=== PATIENT | male | born 1980 | race Caucasian/White ===

== ENCOUNTER 2021-09-01 20:57 | Emergency (ER) | payer BC, SELFPAY ==
[2021-09-01 20:58] VITALS: BP 132/86; PULSE 100; RESP 18; TEMP 35.7; O2SAT 98; BMI 30.3
--- NOTE | 2021-09-01 21:13 | EDS_ITS ---
HPI History of Present Illness Chief Complaint: Shortness of Breath Informant: patient Narrative Narrative: Sent in here by primary care team for evaluation. I spoke with nurse practitioner Darcie Romero prior to his arrival. Apparently coughing since . Concerns he is slightly tachycardic had ketones in his urine 1 to rule out pneumonia and Covid. He is not vaccinated. He states cough would come and go and return. He has no tobacco history. In addition he has not seen the office for 2 years history of diabetes his A1c is 11.6 his urine dip no small ketones. EKG was normal for which he brought in with sinus rhythm with a normal rate. He has no urinary symptoms. His pulse ox was normal. He does report intermittent joint pains and myalgias. Reports intermittent fevers. No chest pains. No vomiting or diarrhea. [facility] Medical History Diabetes type 2, uncontrolled Low testosterone in male Home Medications empagliflozin 25 mg tablet 25 mg PO DAILY #30 tab 09/01/21 [Rx Last Taken Unknown] metformin 500 mg tablet 500 mg PO BID #180 tab 09/01/21 [Rx Last Taken Unknown] Allergy/AdvReac Type Severity Reaction Status Date / Time No Known Allergies Allergy Verified 09/01/21 19:29 Social History Smoking Status: Never smoker ROS ROS ED Constitutional Constitutional ED: Reports fever(s); Denies chills or sweats Eyes Eyes: Denies change in vision ENT ENT ED: Denies dysphagia or sore throat Cardiovascular Cardiovascular: Denies chest pain, leg edema, palpitations or racing heartbeat Respiratory/Chest Respiratory/Chest: Reports cough; Denies dyspnea or dyspnea on exertion Gastrointestinal Gastrointestinal: Denies abdominal pain, diarrhea, nausea or vomiting Genitourinary Genitourinary ED: Denies dysuria, hematuria or urinary frequency Musculoskeletal Musculoskeletal: Reports myalgias; Denies back pain, extremity pain or neck pain Integumentary Denies rash or wounds Neurologic Neurologic: Denies headache(s), paresthesias or weakness EXAM Physical Exam Const Vital Signs: 09/01/21 20:58 09/01/21 21:23 09/01/21 21:24 Temperature 96.3 F L Temperature Source Temporal Pulse Rate 100 98 Respiratory Rate 18 20 H Respiratory Effort Short of Breath Labored Respiratory Pattern Tachypnea Blood Pressure 132/86 H Blood Pressure Mean 101 Pulse Ox 98 98 Oxygen Delivery Method Room Air Room Air 09/01/21 22:01 Temperature 98.6 F Temperature Source Temporal Pulse Rate 100 Respiratory Rate 20 H Respiratory Effort Respiratory Pattern Blood Pressure 126/78 H Blood Pressure Mean 94 Pulse Ox 98 Oxygen Delivery Method Room Air Positive well nourished and well developed General Appearance ED: well developed and NAD HEENT Reports moist mucous membranes normocephalic and atraumatic Eyes PERRL, EOMs intact bilaterally and conjunctivae normal General Eye ED: Yes normal appearance of both eyes Neck no lymphadenopathy and supple General: Negative for tenderness Chest Wall Chest: Negative for tenderness Resp normal respiratory effort and normal air movement Effort and Inspection: symmetric chest movement; Negative for respiratory distress Cardio regular rate, regular rhythm and no murmurs Peripheral Pulses: pulses 2+ throughout GI normal to inspection, nondistended, normoactive bowel sounds and non-tender Palpation: Negative for guarding or rebound tenderness present Back/Spine no CVA tenderness and no thoracic nor lumbar tenderness Extremity normal to inspection General Extremety ED: Negative for edema or tenderness General Extremity: Negative for edema Neuro oriented x3 and no sensory deficits noted Sensorium / Orientation: awake and alert Skin no rashes or lesions noted and no wounds MDM MDM MDM Narrative Medical decision making narrative: Patient vital signs stable afebrile. Pulse ox 98% on room air. Work-up initiated chest x-ray 1 view reviewed by myself read by radiology negative for any acute process. Laboratory studies white count 1.1 hemoglobin 11.6 platelets were 274. Sodium 131 potassium 3.8 creatinine 1.12. Glucose 263, anion gap was 6. Acetone negative. He was given 1 L of fluids. Covid testing also did return positive. She has been on and off symptomatic since . He is well outside the window for treatment he is not hypoxic. Discussed with patient findings he will continue to isolate or a mass. With his neutropenia WBCs of 1.1, possibly could be to his COVID have disease had the symptoms for nearly 2 months with these findings. He is given follow-up with hematology as an outpatient for reevaluation. Message was left with patient's primary team for follow-up. Patient is being discharged under pandemic conditions under declared global, marlen ional and state disaster activation, with limited medical resources. Patient and community understands this. Results discussed in layman's terms to the patient satisfaction. All questions answered in layman's terms. Patient understands importance of follow-up care as directed. Patient has been instructed to return to the ED immediately if new symptoms, problems, or questions occur. We mutually agree with the plan of disposition. The patient understand that they may call or return with any questions or concerns at any time. Lab Data Attestation: I reviewed the patient's lab results. Labs: Laboratory Results - last 24 hr 09/01/21 09/01/21 09/01/21 21:23 21:23 21:23 WBC 1.1 L* RBC 3.36 L Hgb 11.6 L Hct 31.4 L MCV 93.5 MCH 34.5 H MCHC 36.9 H RDW Std Deviation 44.8 H RDW Coeff of Elizabeth 13.2 Plt Count 274 MPV 8.8 Immature Gran % (Auto) 0.000 Neut % (Auto) 20.6 L Lymph % (Auto) 70.5 H Stoddard % (Auto) 8.9 Eos % (Auto) 0.0 Baso % (Auto) 0.0 Absolute Neuts (auto) 0.2 L Absolute Lymphs (auto) 0.79 L Nucleated RBC % 0 Sodium 131 L Potassium 3.8 Chloride 98 Carbon Dioxide 27.0 Anion Gap 6 BUN 19 H Creatinine 1.12 Estim Creat Clear Calc 99.08 Est GFR (MDRD) Af Amer 93 Est GFR (MDRD) Non-Af 77 BUN/Creatinine Ratio 17.0 Glucose 263 H Calcium 9.1 Total Bilirubin 1.00 AST 7 L ALT 14 L Alkaline Phosphatase 61 Total Protein 7.9 Albumin 3.6 Globulin 4.3 H Albumin/Globulin Ratio 0.8 L Acetone Level NEGATIVE Radiography Chest X-Ray - ED: 1 View, Read by ED Physician and Read by Radiologist Diagnostic Testing: Clinical Impression(s) from Imaging Studies Chest X-Ray 09/01/21 21:26 IMPRESSION: There are no acute findings. Electronically Signed: Denzel Starr MD at 21:36 EST Reading Location ID and State: [facility] / [place] , Service support , Discharge Plan Triage Chief Complaint: Shortness of Breath ED Provider: Don Bonilla Dx/Rx/DC Orders Clinical Impression: COVID-19 virus infection, Diabetes type 2, uncontrolled, Neutropenia, Anemia, Acute hyponatremia Instructions: Anemia, Neutropenia, Coronavirus Disease 2019 (COVID-19): Caring for Yourself or Others, ED Diabetes- Overview, ED Hyponatremia Prescriptions: No Action metformin 500 mg tablet 500 mg PO BID Qty: 180 RF: 3 Jardiance 25 mg tablet 25 mg PO DAILY Qty: 30 RF: 12 Primary Care Provider: Darcie Romero NP Referrals: Darcie Romero NP, [employer]ITATION SUPERINTENDENT-C [Primary Care Provider] - 3-5 Days Esthela Liao SANITATION SUPERINTENDENT, [employer]ITATION SUPERINTENDENT-C [Nurse Practitioner] - 1 Week Activity Restrictions/Additional Instructions: You are Covid positive today. Wear mask or continue to quarantine. Your WBC is 1.1 today. Your hemoglobin is 11.6. Your platelet is 274. We will have you follow-up with heme/oncology to make sure this improves. Your sodium is 131. Your glucose is 276 your anion gap is 6, your ketones are negative. Your chest x-ray is negative for any pneumonia. Continue oral fluids. Your primary team has sent your diabetic medications to your pharmacy to start taking. Follow-up with them to recheck your labs. Disposition Disposition: Home, Self Care
[2021-09-01 21:23] VITALS: PULSE 98; RESP 20; O2SAT 98
[2021-09-01] MEDS: 0.9% Normal Saline 1,000 ML 1000 ML IV (21:23)
--- NOTE | 2021-09-01 21:26 | RAD_ITS ---
STUDY: X-RAY CHEST REASON FOR EXAM: Male, 41 years old. CHEST PAIN cough TECHNIQUE: XR Chest 1 View COMPARISON: None FINDINGS: There is no demonstrated pleural abnormality. Normal size heart. Normal mediastinum and shahbaz. Normal visualized pulmonary arteries. Normal visualized aortic arch and descending thoracic aorta. Normal visualized thoracic spine. Normal visualized ribs, clavicles, and shoulders. There is no demonstrated abnormality of the visualized soft tissue structures of the upper abdomen. RAD/Chest 1 View (Portable) IMPRESSION: There are no acute findings. Electronically Signed: Denzel Starr MD at 21:36 EST ,
[2021-09-01 21:29] LABS: Absolute Lymphocyte Count 0.79 X10^3/uL (0.83-4.51); Absolute Neutrophil Count 0.2 X10^3/uL (2.0-7.7); Hematocrit 31.4 % (40-54); Hemoglobin 11.6 g/dL (13.0-16.5); Lymphocyte # 0.79 X10^3/ul (0.83-4.51); Lymphocyte % 70.5 % (19-41); Mean Corp Hgb Conc 36.9 g/dL (32-36); Mean Corpuscular Hgb 34.5 pg (27.0-32.0); Mean Corpuscular Volume 93.5 fL (80-94); Mean Platelet Vol. 8.8 fl (6.2-12.0); Monocyte% 8.9 % (0-10); NRBC Flagged by Analyzer 0 % (0-5); Neutrophil # 0.23 X10^3/uL (2.7-7.7); Neutrophil % 20.6 % (47-70); POSITIVE COUNT YES; POSITIVE DIFFERENTIAL YES; POSITIVE MORPHOLOGY YES; Platelet Count 274 K/mm3 (150-450); RBC Distribution Width CV 13.2 % (11.6-14.6); RBC Distribution Width SD 44.8 fl (35.1-43.9); Red Blood Count 3.36 M/mm3 (4.6-6.2)
[2021-09-01 21:42] LABS: Differential Indicated SCAN CRITERIA MET; White Blood Count 1.1 K/mm3 (4.4-11.0)
[2021-09-01 21:55] LABS: ALB/GLOB Ratio 0.8 RATIO (0.9-2.4); AST(SGOT) 7 U/L (15-37); Alanine Aminotransfer ALT/SGPT 14 U/L (16-61); Albumin, Serum 3.6 g/dL (3.2-5.0); Alkaline Phosphatase 61 U/L (45-117); Anion Gap 6 (5-15); BUN 19 mg/dL (7-18); Calcium,Total 9.1 mg/dL (8.5-10.1); Chloride 98 mmol/L (98-107); Creatinine, Serum 1.12 mg/dL (0.70-1.30); EST Glomerular Filtration Rate 77 mL/min (>60); Est Glom Filt Rate - Afr Amer 93 mL/min (>60); Estimated Creatinine Clearance 99.08 ml/min; Globulin 4.3 g/dL (2.2-4.2); Glucose 263 mg/dL (74-106); Potassium 3.8 mmol/L (3.5-5.1); Protein, Total 7.9 g/dL (6.4-8.2); Sodium Level 131 mmol/L (136-145)
[2021-09-01 22:01] VITALS: BP 126/78; PULSE 100; RESP 20; TEMP 37; O2SAT 98
[2021-09-01 22:29] LABS: Differential Comment SCANNED
[2021-09-01 22:31] VITALS: BP 126/81; PULSE 88; RESP 17; O2SAT 97
--- NOTE | 2021-09-02 16:10 | CASEMGMT ---
ABIGAIL ARVIZU ED follow-up: ABIGAIL ARVIZU placed call to patient's telephone number listed on demographics with no answer. Voice message with call back information left requesting return call if any question, concerns or needs. ABIGAIL Mcgovern CM
[2021-09-03 12:56] LABS: Pathologist Review Reviewed
== END 2021-09-01 22:31 | disposition home or self-care (01) ==
LOC: ED 22:11
PROVIDERS: Emergency Provider Emergency Medicine; PCP Nurse Practitioner; Visit Provider Emergency Medicine
DX: U07.1 COVID-19 (principal); D70.9 Neutropenia, unspecified; E11.9 Type 2 diabetes mellitus without complications; E87.1 Hypo-osmolality and hyponatremia; D64.9 Anemia, unspecified; M25.50 Pain in unspecified joint
CPT/HCPCS: 71045; 80053; 82009; 85025; 87426; 96360; 99284; J7030; A4216

== ENCOUNTER 2021-09-25 21:16 | Outpatient (CLI) | payer BC, SELFPAY ==
[2021-09-25 21:25] LABS: Absolute Lymphocyte Count 0.69 X10^3/uL (0.83-4.51); Absolute Neutrophil Count 0.1 X10^3/uL (2.0-7.7); Hematocrit 25.8 % (40-54); Hemoglobin 9.4 g/dL (13.0-16.5); Lymphocyte # 0.69 X10^3/ul (0.83-4.51); Lymphocyte % 72.6 % (19-41); Mean Corp Hgb Conc 36.4 g/dL (32-36); Mean Corpuscular Hgb 34.2 pg (27.0-32.0); Mean Corpuscular Volume 93.8 fL (80-94); Mean Platelet Vol. 10.5 fl (6.2-12.0); Monocyte# 0.18 X10^3/uL; Monocyte% 18.9 % (0-10); NRBC Flagged by Analyzer 0 % (0-5); Neutrophil # 0.07 X10^3/uL (2.7-7.7); Neutrophil % 7.4 % (47-70); POSITIVE COUNT YES; POSITIVE DIFFERENTIAL YES; POSITIVE MORPHOLOGY YES; Platelet Count 109 K/mm3 (150-450); RBC Distribution Width CV 14.5 % (11.6-14.6); RBC Distribution Width SD 43.8 fl (35.1-43.9); Red Blood Count 2.75 M/mm3 (4.6-6.2)
[2021-09-25 21:29] LABS: Differential Indicated SCAN CRITERIA MET
[2021-09-25 21:39] LABS: ALB/GLOB Ratio 1.1 RATIO (0.9-2.4); AST(SGOT) 11 U/L (15-37); Alanine Aminotransfer ALT/SGPT 22 U/L (16-61); Albumin, Serum 3.9 g/dL (3.2-5.0); Alkaline Phosphatase 51 U/L (45-117); Anion Gap 6 (5-15); BUN 16 mg/dL (7-18); BUN/Creat Ratio 18.3 RATIO (10-20); Calcium,Total 9.3 mg/dL (8.5-10.1); Chloride 98 mmol/L (98-107); Creatinine, Serum 0.87 mg/dL (0.70-1.30); EST Glomerular Filtration Rate 103 mL/min (>60); Est Glom Filt Rate - Afr Amer 124 mL/min (>60); Globulin 3.5 g/dL (2.2-4.2); Glucose 264 mg/dL (74-106); Potassium 4.3 mmol/L (3.5-5.1); Protein, Total 7.4 g/dL (6.4-8.2); Sodium Level 130 mmol/L (136-145)
[2021-09-25 21:53] LABS: Differential Comment SEE COMMENTS
[2021-09-25 21:54] LABS: Anisocytosis RARE; Macrocytosis RARE; Platelet Estimate MOD DEC (ADEQ)
[2021-09-28 12:47] LABS: Pathologist Review Reviewed
== END 2021-09-25 23:59 | disposition home or self-care (01) ==
PROVIDERS: PCP Nurse Practitioner; Visit Provider Nurse Practitioner
DX: E11.65 Type 2 diabetes mellitus with hyperglycemia (principal)
CPT/HCPCS: 80053; 85025

== ENCOUNTER → 2021-12-29 | Outpatient (CLI) | payer BC, SELFPAY ==
[2021-12-29] VITALS (7 sets, daily range): BP systolic 111–135; BP diastolic 63–81; PULSE 48–95; RESP 12–16; TEMP 35.8–35.9; O2SAT 96–100; BMI 28.5
== END | disposition home or self-care (01) ==
PROVIDERS: PCP Nurse Practitioner; Referring Provider Internal Medicine Hematology & Oncology; Visit Provider Internal Medicine Hematology & Oncology
DX: D64.9 Anemia, unspecified (principal); C92.00 Acute myeloblastic leukemia, not having achieved remission
CPT/HCPCS: 36430; 86850; 86900; 86901; 86920; 86922; J7030; P9016; A4216